=== PATIENT | female | born 1985 | race African-American/Black ===

== ENCOUNTER 2018-02-06 13:40 | Emergency (ER) | payer OTHER ==
[~2018-02-06] VITALS: Ht 160 cm; Wt 61.0 kg
[2018-02-06 13:50] VITALS: TEMP 37.1; Ht 160 cm; Wt 61.0 kg
--- NOTE | 2018-02-06 14:38 | DIAGNOSTIC IMAGING REPORT ---
L RIBS UNILATERAL WITH PA CHEST CLINICAL HISTORY: Left rib pain COMPARISON STUDY: No previous studies for comparison. FINDINGS: The erect chest reveals no pneumothorax. There is no focal pulmonary consolidation. No left-sided rib fractures are visualized. IMPRESSION: No evidence of pneumothorax. No left-sided rib fractures are visualized. Electronically signed by: Levar De Paz M.D. 02/06/2018 2:37 PM Dictated Date/Time: 02/06/2018 2:36 PM
--- NOTE | 2018-02-06 14:46 | EMERGENCY ROOM VISIT NOTE ---
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 The patient does admit to having rib fractures on the left side one year ago. The patient admits to slight increased pain with inspiration. The patient denies any shortness of breath. The patient has not taken anything for pain today. The patient is concerned because she has a race this . REVIEW OF SYSTEMS: 6 system review was performed and was negative unless stated otherwise in history of present illness. PMH: The patient is healthy; L4 spinal fusion, bilateral osteotomies SOCIAL HISTORY: Patient lives with her daughter. The patient denies any tobacco or alcohol use. PHYSICAL EXAM: Vital Signs: Were reviewed reviewed Nurse's notes. GENERAL: 32- year-old female appears in no acute distress. MENTAL Status: Alert and oriented 3. LUNGS: Clear to auscultation and breath sounds equal, no wheezes, rales, or rhonchi. HEART: Heart sounds are regular without murmurs, ectopy, gallop, or rub. CHEST WALL: The patient has tenderness to palpation over the anterior aspect of the left chest wall just underneath the left breast. Remainder chest wall is nontender. No erythema or edema noted. EMERGENCY DEPARTMENT COURSE: The patient was evaluated. The patient was initially offered pain medication but she declined. X-rays of the left ribs were ordered and interpreted by the radiologist and myself. DIAGNOSTICS:L RIBS UNILATERAL WITH PA CHEST CLINICAL HISTORY: Left rib pain COMPARISON STUDY: No previous studies for comparison. FINDINGS: The erect chest reveals no pneumothorax. There is no focal pulmonary consolidation. No left-sided rib fractures are visualized. IMPRESSION: No evidence of pneumothorax. No left-sided rib fractures are visualized. Electronically signed by: Levar De Paz M.D. 02/06/2018 2:37 PM The patient was informed of the findings. The patient was discharged home in stable condition. DIAGNOSIS: Costochondritis TREATMENT and DISCHARGE INSTRUCTIONS: Take Voltaren as prescribed. Do not take any additional ibuprofen or Aleve while taking the Voltaren. He may take additional Tylenol for pain relief. If symptoms persist or worsen, follow-up with your family doctor. Vital Signs Date Time Temp Pulse Resp B/P (MAP) Pulse Ox O2 Delivery O2 Flow Rate FiO2 02/06/18 13:50 37.1 66 18 135/84 93 Departure Information Referrals No Doctor, Assigned (PCP) Patient Instructions [facility]
[2018-02-06] MEDS ORDERED: DICL75TA2 PO (14:47)
[2018-02-06 14:50] VITALS: BP 116/78; PULSE 66; O2SAT 98
== END 2018-02-06 14:55 | disposition home or self-care (01) ==
LOC: C.EDB 13:43 → C.EDD 14:55
DX: M94.0 Chondrocostal junction syndrome [Tietze] (principal)